=== PATIENT | male | born 1980 | race Caucasian/White ===

== ENCOUNTER 2018-08-09 16:49 | Emergency (ER) | payer MEDICAID ==
[~2018-08-09] VITALS: Ht 190.5 cm; Wt 78.0 kg
[2018-08-09 16:54] VITALS: BP 121/79
== END 2018-08-09 19:03 | disposition home or self-care (01) ==
LOC: ED 17:24 → EDIP 18:00 → UNDOADMIN 18:00 → ED 19:03
DX: F10.220 Alcohol dependence with intoxication, uncomplicated (principal)
CPT/HCPCS: 99283; 99285